=== PATIENT | female | born 1980 | race Hispanic/Latino ===

== ENCOUNTER 2019-03-13 05:11 | Emergency (ER) | payer OTHER ==
--- NOTE | 2019-03-13 06:33 | EDPHYS ---
Physician Documentation [facility] Name: Flor Smallwood Age: 38 yrs Sex: Female : 1980 Arrival Date: 03/13/2019 Time: 05:14 Bed 13 Private MD: ED Physician Karsten Shaw HPI: 03/13 06:14 This 38 yrs old Female presents to ER via Ambulatory with complaints of spider rn bite. 06:14 the patient presents with a swollen area of the right leg. Description: erythematous. rn Onset: The symptoms/episode began/occurred yesterday. Possible cause(s): unknown. Associated signs and symptoms: Pertinent positives: erythema, swelling, Pertinent negatives: erythema, swelling. Modifying factors: the symptoms are alleviated by nothing, the symptoms are aggravated by touching. Severity of symptoms: At their worst the symptoms were mild, in the emergency department the symptoms are unchanged. The patient has not experienced similar symptoms in the past. Reports noticed redness and swelling of right pre-tibial region, no fever, no trauma, reports got better with ice. . 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 - Social history:: Smoking status: Patient/guardian denies using tobacco. - Ebola Screening: : No symptoms or risks identified at this time. - Family history:: not pertinent. - Hospitalizations: : No recent hospitalization is reported. ROS: 06:14 Constitutional: Negative for fever, chills, and weight loss, Skin: + right pre-tibial rn region with swollen red area Exam: 06:14 Constitutional: This is a well developed, well nourished patient who is awake, alert, rn and in no acute distress. MS/ Extremity: Pulses equal, no cyanosis. Neurovascular intact. Full, normal range of motion. + 3cm irregular area of induration right pre-tibial region, no fluctuance. Vital Signs: 05:31 BP 146 / 97; Pulse 84; Resp 16 S; Temp 98.7(O); Pulse Ox 98% on R/A; Weight 72.57 kg bb (R); Height 4 ft. 11 in. (149.86 cm) (R); Pain 5/10; 05:31 Body Mass Index 32.32 (72.57 kg, 149.86 cm) bb MDM: 05:24 Patient medically screened. rn 06:31 Differential diagnosis: abscess, cellulitis, insect bite. Data reviewed: vital signs, rn nurses notes, radiologic studies, ultrasound, and as a result, I will discharge patient. Counseling: I had a detailed discussion with the patient and/or guardian regarding: the historical points, exam findings, and any diagnostic results supporting the discharge/admit diagnosis, the need for outpatient follow up, to return to the emergency department if symptoms worsen or persist or if there are any questions or concerns that arise at home. Special discussion: I discussed with the patient/guardian in detail that at this point there is no indication for admission to the hospital. It is understood, however, that if the symptoms persist or worsen the patient needs to return immediately for re-evaluation. ED course: Bedside ultrasound show cobblestoning of subcutaneous tissue, no drainable abscess, will place on abx and return precautions given. Told to use neosporin, antibacterial soap, and warm compresses. . Administered Medications: No medications were administered Disposition: 03/13/19 06:32 Discharged to Home. Impression: Cellulitis of right lower limb, Phlegmon of right lower limb. - Condition is Stable. - Discharge Instructions: Cellulitis, Adult. - Prescriptions for Bactrim DS 800- 160 mg Oral Tablet - take 1 tablet by ORAL route every 12 hours for 10 days; 20 tablet. - Medication Reconciliation Form, Thank You Letter, Antibiotic Education, Prescription Opioid Use form. - Work release form (03/13/19 06:41). lp1 - Family Work Release (03/13/19 06:42). lp1 - Follow up: Private Physician; When: As needed; Reason: Recheck today's complaints, Re-evaluation by your physician. - Problem is new. - Symptoms have improved. Signatures: Naina Hudson RN RN bb Karsten Shaw MD MD rn Pena, Laura, RN RN lp1 Corrections: (The following items were deleted from the chart) 06:33 06:32 03/13/2019 06:32 Discharged to Home. Impression: Cellulitis of right lower limb. rn Condition is Stable. Forms are Medication Reconciliation Form, Thank You Letter, Antibiotic Education, Prescription Opioid Use. Follow up: Private Physician; When: As needed; Reason: Recheck today's complaints, Re-evaluation by your physician. Problem is new. Symptoms have improved. rn 06:41 06:33 03/13/2019 06:32 Discharged to Home. Impression: Cellulitis of right lower limb; lp1 Phlegmon of right lower limb. Condition is Stable. Forms are Medication Reconciliation Form, Thank You Letter, Antibiotic Education, Prescription Opioid Use. Follow up: Private Physician; When: As needed; Reason: Recheck today's complaints, Re-evaluation by your physician. Problem is new. Symptoms have improved. rn
--- NOTE | 2019-03-13 06:33 | ER ---
Nurse's Notes [facility] Name: Flor Smallwood Age: 38 yrs Sex: Female : 1980 Arrival Date: 03/13/2019 Time: 05:14 Bed 13 Private MD: Diagnosis: Cellulitis of right lower limb;Phlegmon of right lower limb Presentation: 03/13 05:30 Presenting complaint: Patient states: she thinks she may have been bitten by a spider bb yesterday she has a reddened area which is swollen and painful to right lower extremity. Transition of care: patient was not received from another setting of care. Onset of symptoms was March 12, 2019. Risk Assessment: Do you want to hurt yourself or someone else? Patient reports no desire to harm self or others. Initial Sepsis Screen: Does the patient meet any 2 criteria? No. Patient's initial sepsis screen is negative. Does the patient have a suspected source of infection? No. Patient's initial sepsis screen is negative. Care prior to arrival: None. 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 - Social history:: Smoking status: Patient/guardian denies using tobacco. - Ebola Screening: : No symptoms or risks identified at this time. - Family history:: not pertinent. - Hospitalizations: : No recent hospitalization is reported. Screenin:33 Abuse screen: Denies threats or abuse. Nutritional screening: No deficits noted. bb Tuberculosis screening: No symptoms or risk factors identified. Fall Risk None identified. Assessment: 05:33 General: Appears in no apparent distress. Behavior is calm, cooperative. Pain: bb Complains of pain in right kaur Pain currently is 5 out of 10 on a pain scale. Neuro: Level of Consciousness is awake, alert, obeys commands, Oriented to person, place, time, situation. Cardiovascular: No deficits noted. Respiratory: Airway is patent Respiratory effort is even, unlabored. GI: No signs and/or symptoms were reported involving the gastrointestinal system. Derm: Abscess located on right kaur. Musculoskeletal: Circulation, motion, and sensation intact. Vital Signs: 05:31 BP 146 / 97; Pulse 84; Resp 16 S; Temp 98.7(O); Pulse Ox 98% on R/A; Weight 72.57 kg bb (R); Height 4 ft. 11 in. (149.86 cm) (R); Pain 5/10; 05:31 Body Mass Index 32.32 (72.57 kg, 149.86 cm) ED Course: 05:14 Patient arrived in ED. am2 05:24 Karsten Shaw MD is Attending Physician. rn 05:31 Triage completed. bb 05:31 Arm band placed on Patient placed in an exam room, on a stretcher, on pulse oximetry. bb Family accompanied patient. 05:33 Patient has correct armband on for positive identification. Bed in low position. Call bb light in reach. Adult w/ patient. Pulse ox on. NIBP on. 05:40 Trish Rico RN is Primary Nurse. lp1 06:40 No provider procedures requiring assistance completed. Patient did not have IV access lp1 during this emergency room visit. Administered Medications: No medications were administered Outcome: 06:32 Discharge ordered by . rn 06:40 Discharged to home ambulatory, with significant other. lp1 06:40 Condition: good 06:40 Discharge instructions given to patient, Instructed on discharge instructions, follow up and referral plans. medication usage, Demonstrated understanding of instructions, follow-up care, medications, Prescriptions given X 1. 06:41 Patient left the ED. lp1 Signatures: Naina Hudson RN RN Karsten Shaw MD MD rn Pena, Laura, RN RN lp1 Sarah Grace amIlya
[2019-03-13 07:10] VITALS: BP 146/97; TEMP 98.7; O2SAT 98
== END 2019-03-13 06:41 | disposition home or self-care (01) ==
LOC: ER 05:11
DX: L03.115 Cellulitis of right lower limb (principal); L02.415 Cutaneous abscess of right lower limb; W57.XXXA Bitten or stung by nonvenomous insect and other nonvenomous arthropods, initial encounter; Z88.6 Allergy status to analgesic agent
CPT/HCPCS: 99283

== ENCOUNTER 2021-10-22 18:38 | Emergency (ER) | payer OTHER ==
--- OUTSIDE RECORDS SUMMARY | 2021-10-22 18:40 | XMS REPORT | Continuity of Care Document ---
:1980 Author Organization [facility] t Address [address] [place] [address] Care Team Providers Name Role Phone PCP, DOES NOT HAVE A Primary Care Physician Unavailable Only, Db Test Attending Clinician Unavailable Martha MAILING MANAGER Attending Clinician MARTHA Attending Clinician Unavailable GHISLAINE Attending Clinician Unavailable Lab, Fam Pob I Attending Clinician Unavailable Gaby Burdick MD Attending Clinician Gaby BURDICK Attending Clinician Unavailable Aneedgard MAILING MANAGER Attending Clinician ANENE Attending Clinician Unavailable Doctor Unassigned, Name Attending Clinician Unavailable Payers Payer Name Policy Type Policy Number Effective Date Expiration Date S ource Problems This patient has no known problems. Allergies, Adverse Reactions, Alerts Allergy Allergy Status Severity Reaction(s) Onset Inactive Treating Comm ents Source Name Type Date Date Clinician NO KNOWN Drug Active [facility] ALLERGIE Class ity of [facility] Social History Social Habit Start Date Stop Date Quantity Comments Source Exposure to Not sure [facility] SARS-CoV-2 (event) Medica l Branch Sex Assigned At [birth year] [facility] 00:00:00 00:00:00 [facility] Branch Smoking Status Start Date Stop Date Source Unknown if ever smoked [facility] Medications This patient has no known medications. Procedures This patient has no known procedures. Encounters Start End Encounter Admission Attending Care Care Encounter Source Date/Time Date/Time Type Type Clinicians Facility Department ID 2021-10-14 2021-10-14 Laboratory Only, Ang Db Test [facility] 1.2.8 [id number] Univers 12:30:00 12:45:00 Only Marleni Echevarria [facility] [id number] ity of [place] [id number] Donnie as DAJUAN?BLEA [phone] Wi dical KNEY [address] [facility] 2021-10-14 2021-10-14 Outpatient R MARTHA [facility] [id number] Univers 12:30:00 12:33:41 MARLENI [facility] 2021-10-14 2021-10-14 Outpatient R [facility] [id number] Univers 12:30:00 12:30:00 [id number] [facility] 2020-11-14 2020-11-14 Outpatient ALI, HIBA [facility] [id number] [place] 00:00:00 00:00:[address] 2020-10-31 2020-10-31 Laboratory Lab, [facility] 1.2. [id number] Univers 15:11:03 15:31:03 Only Neville Burdick [facility] [id number] ity [facility] [id number] Donnie as Professio [phone] Wi dicsebastián [address] Office [address] 2020-10-31 2020-10-31 Outpatient R [facility] [id number] Univers 15:20:00 15:20:00 [id number] [facility] 2020-10-31 2020-10-31 Outpatient R EMMANUEL [facility] [id number] Univers 15:20:00 15:20:00 NEVILLE [facility] 2020-10-31 2020-10-31 Outpatient ALI, HIBA [facility] [id number] [place] 00:00:00 00:00:[address] 2020-10-31 2020-10-31 Outpatient ALI, HIBA [facility] [id number] [place] 00:00:00 00:00:[address] 2020-10-31 2020-10-31 Outpatient ALI, HIBA [facility] [id number] [place] 00:00:00 00:00:[address] 2020-04-23 2020-04-23 Laboratory Lab, Adc Fam Pob I [email or web address] 1.2. [id number] [id number] Univers 13:32:56 13:52:56 Only Elen Mullen [id number] ity of [place] [id number] Donnie as Professio [phone] [facility] [address] 2020-04-23 2020-04-23 Outpatient R CARMELLA [facility] [id number] Univers 13:40:00 13:40:00 ELEN chanely of [facility] 2020-04-23 2020-04-23 Letter Doctor ARTURO [id number] Univers 00:00:00 00:00:00 (Out) Unassigned, DIDIER [id number] ity of [place] [facility] [id number] Donnie as [phone] [place] [address] Branch Results This patient has no known results.
[2021-10-22 20:42] LABS: SARS-COV-2 RT PCR POSITIVE (NEGATIVE)
[2021-10-22] MEDS ORDERED: NA CHLORIDE 0.9% 500 ML ONE (21:39)
[2021-10-22] MEDS ORDERED: NA CHLORIDE 0.9% 1,000 ML ONE (21:39)
[2021-10-22] MEDS ORDERED: ASPIRIN 81 MG CHEWABLE TABLET ONE (21:39)
[2021-10-22 23:26] LABS: Absolute Lymphocytes (CBC) 2.2 K/uL (0.7-4.9)
[2021-10-22 23:27] LABS: Protime INR 1.01
[2021-10-22 23:38] LABS: Hematocrit 41.6 % (36.0-45.0); Lymphocytes % 27.3 % (15.3-44.8); RBC Red Blood Cell Count 4.71 M/uL (3.86-4.86)
[2021-10-22 23:43] LABS: ALT/SGPT 64 U/L (12-78); AST/SGOT 30 U/L (15-37); Albumin 3.5 g/dL (3.4-5.0); Alkaline Phosphatase 96 U/L (45-117); BUN Blood Urea Nitrogen 6 mg/dL (7-18); Bicarbonate 24 mmol/L (21-32); Bilirubin Direct 0.1 mg/dL (0-0.2); Bilirubin Total 0.4 mg/dL (0.2-1.0); C-Reactive Protein 4.04 mg/L (<3.00); Ferritin 47.3 ng/mL (8-388); Glucose Level 87 mg/dL (74-106); Magnesium 2.1 mg/dL (1.8-2.4); NT PRO-BNP 21 pg/mL (<125); Potassium 3.8 mmol/L (3.5-5.1); Protein, Total 8.1 g/dL (6.4-8.2); Sodium Level 139 mmol/L (136-145); Troponin (Emerg Dept Use Only) < 0.02 ng/mL (0.0-0.045)
[2021-10-23 00:37] LABS: Urine Blood Trace-lysed (Negative); Urine Glucose Negative (Negative); Urine Protein Negative (Negative); Urine Specific Gravity 1.025 (1.005-1.030)
--- NOTE | 2021-10-23 00:54 | ER ---
Nurse's Notes [facility] Name: Flor Smallwood Age: 41 yrs Sex: Female : 1980 Arrival Date: 10/22/2021 Time: 18:38 Bed 12 Private MD: Pio Wakefield T Diagnosis: Chest pain on breathing;Coronavirus infection, unspecified Presentation: 10/22 19:10 Chief complaint: Patient states: pt states she was tested last Saturday for covid with a lg3 positive result in [place]. Symptoms increasing since last week. Coughing, body aches, congestion, fever. new chest pain for 2 days in center of chest that radiates to the back especially after coughing. Taking Mucinex, Advil, DayQuil and NyQuil at home. Coronavirus screen: Client denies travel out of the [place] in the last 14 days. chills, congestion, cough unrelated to allergies, fatigue, fever, headache, muscle pain, runny nose, shortness of breath, Client presents with at least one sign or symptom that may indicate coronavirus-19. Standard/surgical mask placed on the client. Client reports previous positive COVID test result. Date of collection: October 15, 2021. Ebola Screen: No symptoms or risks identified at this time. Initial Sepsis Screen: Does the patient meet any 2 criteria? No. Patient's initial sepsis screen is negative. Does the patient have a suspected source of infection? No. Patient's initial sepsis screen is negative. Risk Assessment: Do you want to hurt yourself or someone else? Patient reports no desire to harm self or others. Onset of symptoms was October 15, 2021. 19:10 Method Of Arrival: Ambulatory lg3 19:10 Acuity: VAN 3 lg3 Triage Assessment: 19:16 General: Appears in no apparent distress. comfortable, Behavior is calm, cooperative. lg3 Pain: Complains of pain in chest Pain radiates to back. Neuro: Level of Consciousness is awake, alert, obeys commands, Oriented to person, place, time, situation. Cardiovascular: Capillary refill < 3 seconds. Respiratory: Reports shortness of breath cough that is pain with cough Onset: The symptoms/episode began/occurred gradually, the patient has mild shortness of breath. GI: No signs and/or symptoms were reported involving the gastrointestinal system. : No signs and/or symptoms were reported regarding the genitourinary system. Derm: No signs and/or symptoms reported regarding the dermatologic system. Musculoskeletal: Circulation, motion, and sensation intact. Range of motion: intact in all extremities. 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 - Social history:: Smoking status: Patient denies any tobacco usage or history of. - Family history:: not pertinent. Screenin:44 Abuse screen: Denies threats or abuse. Nutritional screening: No deficits noted. tw5 Tuberculosis screening: No symptoms or risk factors identified. Fall Risk None identified. Assessment: 19:44 Reassessment: No changes from previously documented assessment. Patient and/or family tw5 updated on plan of care and expected duration. Pain level reassessed. Patient is alert, oriented x 3, equal unlabored respirations, skin warm/dry/pink. General: Appears in no apparent distress. comfortable, Behavior is calm, cooperative. Pain: Complains of pain in chest Pain radiates to back Pain currently is 6 out of 10 on a pain scale. Neuro: Level of Consciousness is awake, alert, obeys commands, Oriented to person, place, time, situation, Moves all extremities. Gait is steady, Speech is normal. Cardiovascular: Capillary refill < 3 seconds JVD is absent Patient's skin is warm and dry. Rhythm is sinus rhythm. Respiratory: Airway is patent Trachea midline Respiratory effort is even, unlabored, Respiratory pattern is regular, symmetrical, Breath sounds are clear bilaterally. 22:36 Reassessment: No changes from previously documented assessment. Patient and/or family tw5 updated on plan of care and expected duration. Pain level reassessed. Patient is alert, oriented x 3, equal unlabored respirations, skin warm/dry/pink. Pain: Complains of pain in chest Pain currently is 6 out of 10 on a pain scale. 22:36 General: Appears in no apparent distress. comfortable, Behavior is calm, cooperative, tw5 appropriate for age. 23:50 Reassessment: Patient and/or family updated on plan of care and expected duration. Pain tw5 level reassessed. Patient is alert, oriented x 3, equal unlabored respirations, skin warm/dry/pink. Patient states feeling better. 23:50 General: "How long are we going to be here, I would really like to go home and get tw5 something to eat". Vital Signs: 19:10 BP 135 / 90; Pulse 80; Resp 18 S; Temp 98.4(TE); Pulse Ox 100% on R/A; Weight 77.11 kg lg3 (R); Height 4 ft. 11 in. (149.86 cm); Pain 7/10; 22:36 Pulse 68; Resp 18; Pulse Ox 100% on R/A; tw5 23:50 Pulse 72; Resp 18; Pulse Ox 100% on R/A; tw5 19:10 Body Mass Index 34.34 (77.11 kg, 149.86 cm) lg3 ED Course: 18:38 Patient arrived in ED. am2 18:38 Pio Wakefield MD is Private Physician. am2 19:16 Triage completed. lg3 19:16 Arm band placed on. lg3 19:25 Tex Feng MD is Attending Physician. [facility] 19:41 Venus Shaw is Primary Nurse. tw5 19:44 Patient has correct armband on for positive identification. Placed in gown. Bed in low tw5 position. Call light in reach. Side rails up X 1. 19:44 No provider procedures requiring assistance completed. tw5 20:19 COVID-19/FLU A+B (Document "Date of Onset" if Symptomatic) Sent. tw5 20:42 Notified ED physician of a critical lab result(s). covid +. tw5 20:42 Throat Culture Sent. tw5 22:04 XRAY Chest (1 view) In Process Unspecified. EDMS 22:36 Ferritin Sent. tw5 22:36 C-Reactive Protein Sent. tw5 22:36 Troponin (emerg Dept Use Only) Sent. tw5 22:36 PT-INR Sent. tw5 22:36 NT PRO-BNP Sent. tw5 22:36 Basic Metabolic Panel Sent. tw5 22:36 CBC with Diff Sent. tw5 22:36 LFT's Sent. tw5 22:36 Magnesium Sent. 10/23 00:39 CT Chest For PE Angio In Process Unspecified. EDMS 00:53 Pio Wakefield MD is Referral Physician. [facility] 00:54 Merrick Castellanos MD is Referral Physician. [facility] Administered Medications: 10/22 22:31 Drug: Aspirin Chewable Tablet 324 mg Route: PO; lg3 22:31 Follow up: Response: No adverse reaction lg3 23:49 Follow up: Response: No adverse reaction 22:36 Drug: NS 0.9% 500 ml Route: IV; Rate: bolus; Site: right forearm; 23:49 Follow up: IV Status: Completed infusion; IV Intake: 500ml 22:36 Drug: NS 0.9% 1000 ml Route: IV; Rate: 125 ml/hr; Site: right forearm; 10/23 01:12 Follow up: Response: No adverse reaction; IV Status: Order to discontinue infusion; IV Intake: 500ml Intake: 10/22 23:49 IV: 500ml; Total: 500ml. 10/23 01:12 IV: 500ml; Total: 1000ml. Outcome: 00:54 Discharge ordered by . [facility] 01:15 Patient left the ED. Signatures: Dispatcher [employer] EDTex Mosley MD MD cha Moreno, Amanda am2 Gibson, Lacie, RN RN [email or web address] Venus Shaw tw
--- NOTE | 2021-10-23 00:54 | EDPHYS ---
Physician Documentation [facility] Name: Flor Smallwood Age: 41 yrs Sex: Female : 1980 Arrival Date: 10/22/2021 Time: 18:38 Bed 12 Private MD: Pio Wakefield T ED Physician Tex Feng HPI: 10/22 20:55 This 41 yrs old Female presents to ER via Ambulatory with complaints of antonio Breathing Difficulty. 20:55 The patient has shortness of breath at rest, with light activity. Onset: The antonio symptoms/episode began/occurred 3 day(s) ago. Duration: The symptoms are continuous, and are steadily getting worse. The patient's shortness of breath is aggravated by coughing, is alleviated by rest. Associated signs and symptoms: Pertinent positives: non-productive cough. Severity of symptoms: At their worst the symptoms were mild in the emergency department the symptoms are unchanged. The patient has not experienced similar symptoms in the past. 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 - Social history:: Smoking status: Patient denies any tobacco usage or history of. - Family history:: not pertinent. ROS: 21:00 Constitutional: Negative for fever, chills, and weight loss, Eyes: Negative for injury, antonio pain, redness, and discharge, ENT: Negative for injury, pain, and discharge, Neck: Negative for injury, pain, and swelling, Respiratory: Negative for shortness of breath, cough, wheezing, and pleuritic chest pain, Abdomen/GI: Negative for abdominal pain, nausea, vomiting, diarrhea, and constipation, Back: Negative for injury and pain, : Negative for injury, bleeding, discharge, and swelling, MS/Extremity: Negative for injury and deformity, Skin: Negative for injury, rash, and discoloration, Neuro: Negative for headache, weakness, numbness, tingling, and seizure, Psych: Negative for depression, anxiety, suicide ideation, homicidal ideation, and hallucinations, Allergy/Immunology: Negative for hives, rash, and allergies, Endocrine: Negative for neck swelling, polydipsia, polyuria, polyphagia, and marked weight changes, Hematologic/Lymphatic: Negative for swollen nodes, abnormal bleeding, and unusual bruising. 21:00 Cardiovascular: Positive for chest pain, with cough, with movement, of the chest. Exam: 21:00 Constitutional: This is a well developed, well nourished patient who is awake, alert, antonio and in no acute distress. Head/Face: Normocephalic, atraumatic. Eyes: Pupils equal round and reactive to light, extra-ocular motions intact. Lids and lashes normal. Conjunctiva and sclera are non-icteric and not injected. Cornea within normal limits. Periorbital areas with no swelling, redness, or edema. ENT: Nares patent. No nasal discharge, no septal abnormalities noted. Tympanic membranes are normal and external auditory canals are clear. Oropharynx with no redness, swelling, or masses, exudates, or evidence of obstruction, uvula midline. Mucous membranes moist. Neck: Trachea midline, no thyromegaly or masses palpated, and no cervical lymphadenopathy. Supple, full range of motion without nuchal rigidity, or vertebral point tenderness. No Meningismus. Chest/axilla: Normal chest wall appearance and motion. Nontender with no deformity. No lesions are appreciated. Respiratory: Lungs have equal breath sounds bilaterally, clear to auscultation and percussion. No rales, rhonchi or wheezes noted. No increased work of breathing, no retractions or nasal flaring. Abdomen/GI: Soft, non-tender, with normal bowel sounds. No distension or tympany. No guarding or rebound. No evidence of tenderness throughout. Back: No spinal tenderness. No costovertebral tenderness. Full range of motion. Skin: Warm, dry with normal turgor. Normal color with no rashes, no lesions, and no evidence of cellulitis. MS/ Extremity: Pulses equal, no cyanosis. Neurovascular intact. Full, normal range of motion. Neuro: Awake and alert, GCS 15, oriented to person, place, time, and situation. Cranial nerves II-XII grossly intact. Motor strength 5/5 in all extremities. Sensory grossly intact. Cerebellar exam normal. Normal gait. Psych: Awake, alert, with orientation to person, place and time. Behavior, mood, and affect are within normal limits. 21:00 Cardiovascular: Rate: normal, Rhythm: regular, Pulses: Pulses are 4+ in bilateral radial, brachial, femoral, popliteal, posterior tibial and and dorsalis pedis arteries.. Heart sounds: murmur, not appreciated, rub, not appreciated, gallop, not appreciated, Edema: is not appreciated, JVD: is not appreciated. 23:14 ECG was reviewed by the Attending Physician. antonio Vital Signs: 19:10 BP 135 / 90; Pulse 80; Resp 18 S; Temp 98.4(TE); Pulse Ox 100% on R/A; Weight 77.11 kg lg3 (R); Height 4 ft. 11 in. (149.86 cm); Pain 7/10; 22:36 Pulse 68; Resp 18; Pulse Ox 100% on R/A; tw5 23:50 Pulse 72; Resp 18; Pulse Ox 100% on R/A; tw5 19:10 Body Mass Index 34.34 (77.11 kg, 149.86 cm) lg3 MDM: 19:25 Patient medically screened. antonio 21:02 Differential diagnosis: Anxiety Reaction Bronchitis CHF exacerbation, bronchitis, URI, antonio abnormal EKG, anxiety, coronary artery disease chest wall pain, congestive heart failure Cholelithiasis hiatal hernia, pneumothorax, pulmonary embolus, stable angina, pneumonia, Pneumothorax pulmonary edema, Pulmonary Embolism Unstable Angina. Antibiotic administration: Not indicated. HEART Score: History: Slightly Suspicious (0), ECG: Normal (0), Age: < or = 45 years (0), Risk Factors: No Risk Factors Known (0), Troponin: < or = 1 x Normal Limit (0). The patient's Wells Deep Vein Thrombosis Score was calculated as follows: Total Score: 0. This patient was found to be at low risk for a deep vein thrombosis by using the Well's assessment criteria No Risks (0 Pts) Total Score: 0-2 Pts- Low Risk. The patient's pulmonary embolism risk score was calculated as follows: Total Score: 0-2 points. This patient was found to be at low risk for a pulmonary embolism by using the Well's assessment criteria Total Score: 0-2 points. This patient was found to be at low risk for a pulmonary embolism by using the Well's assessment criteria. JERMAINE Risk Score: TOTAL SCORE = 0. Immunization status:. Data reviewed: vital signs, nurses notes, lab test result(s), EKG, radiologic studies, plain films. Data interpreted: manager monitoring: rate is 80 beats/min, rhythm is regular, Pulse oximetry: on room air is 100 %. Test interpretation: by ED physician or midlevel provider: ECG, plain radiologic studies. 10/22 19:42 Order name: COVID-19/FLU A+B (Document "Date of Onset" if Symptomatic); Complete Time: tw5 22:18 10/22 19:42 Order name: Strep; Complete Time: 22:18 tw5 10/22 20:08 Order name: Throat Culture EDMS 10/22 20:55 Order name: Basic Metabolic Panel; Complete Time: 00:03 [facility] 10/22 20:55 Order name: CBC with Diff; Complete Time: 00:03 [facility] 10/22 20:55 Order name: LFT's; Complete Time: 00:03 [facility] 10/22 20:55 Order name: Magnesium; Complete Time: 00:03 [facility] 10/22 20:55 Order name: NT PRO-BNP; Complete Time: 00:03 [facility] 10/22 20:55 Order name: PT-INR; Complete Time: 23:38 [facility] 10/22 20:55 Order name: Troponin (emerg Dept Use Only); Complete Time: 00:03 [facility] 10/22 19:22 Order name: EKG - Nurse/Tech; Complete Time: 20:18 lg3 10/22 20:55 Order name: XRAY Chest (1 view) [facility] 10/22 20:55 Order name: EKG; Complete Time: 20:56 [facility] 10/22 20:55 Order name: Cardiac monitoring; Complete Time: 22:36 [facility] 10/22 20:55 Order name: IV Saline Lock; Complete Time: 22:36 [facility] 10/22 20:55 Order name: Labs collected and sent; Complete Time: 22:36 [facility] 10/22 20:55 Order name: O2 Per Protocol; Complete Time: 22:36 [facility] 10/22 20:55 Order name: CT Chest For PE Angio [facility] 10/22 21:45 Order name: C-Reactive Protein; Complete Time: 00:03 EDMS 10/22 21:45 Order name: Ferritin; Complete Time: 00:03 EDMS 10/23 00:37 Order name: Urine Dipstick-Ancillary; Complete Time: 00:53 EDMS 10/23 00:45 Order name: Urine --Ancillary (enter results) cs9 10/22 20:55 Order name: O2 Sat Monitoring; Complete Time: 23:45 antonio 10/22 23:50 Order name: Urine Dipstick-Ancillary (obtain specimen); Complete Time: 00:31 tw5 EC:14 Rate is 71 beats/min. Rhythm is regular. QRS [place] is Normal. [place] interval is normal. QRS antonio interval is normal. QT interval is normal. No Q waves. T waves are Normal. No ST changes noted. Clinical impression: Normal ECG and No evidence of ischemia. Interpreted by me. Reviewed by me. Administered Medications: 22:31 Drug: Aspirin Chewable Tablet 324 mg Route: PO; lg3 22:31 Follow up: Response: No adverse reaction lg3 23:49 Follow up: Response: No adverse reaction tw5 22:36 Drug: NS 0.9% 500 ml Route: IV; Rate: bolus; Site: right forearm; tw5 23:49 Follow up: IV Status: Completed infusion; IV Intake: 500ml tw5 22:36 Drug: NS 0.9% 1000 ml Route: IV; Rate: 125 ml/hr; Site: right forearm; tw5 10/23 01:12 Follow up: Response: No adverse reaction; IV Status: Order to discontinue infusion; IV tw5 Intake: 500ml Disposition Summary: 10/23/21 00:54 Discharge Ordered Location: Home antonio Problem: new antonio Symptoms: have improved antonio Condition: Stable antonio Diagnosis - Chest pain on breathing antonio - Coronavirus infection, unspecified antonio Followup: antonio - With: - When: 2 - 3 days - Reason: Recheck today's complaints, Continuance of care, Re-evaluation by your physician Followup: antonio - With: Merrick Castellanos MD - When: 2 - 3 days - Reason: Recheck today's complaints, Re-evaluation by your physician Discharge Instructions: - Discharge Summary Sheet antonio - Nonspecific Chest Pain, Adult antonio - Chest Wall Pain antonio - Upper Respiratory Infection, Adult antonio - Costochondritis, [id number] antonio - Aspirin and Your Heart antonio - COVID-19 antonio - COVID-19 Frequently Asked Questions antonio - 10 Things You Can Do to Manage Your COVID-19 Symptoms at Home - CDC antonio - COVID-19: Quarantine vs. Isolation - [facility] Forms: - Medication Reconciliation Form [facility] - Thank You Letter [facility] - Antibiotic Education [facility] - Prescription Opioid Use [facility] - Work release form tw5 Prescriptions: - Toprol XL 25 mg Oral Tablet - take 1 tablet by ORAL route once daily; 20 tablet; Refills: 0, Product [facility] Selection Permitted - Pepcid 20 mg Oral Tablet - take 1 tablet by ORAL route every 12 hours for 30 days; 60 tablet; Refills: 0, [facility] Product Selection Permitted - Singulair 10 mg Oral Tablet - take 1 tablet by ORAL route At bedtime; 30 tablet; Refills: 0, Product [facility] Selection Permitted - Prednisone 20 mg Oral Tablet - take 2 tablets by ORAL route once daily for 5 days; 10 tablet; Refills: 0, [facility] Product Selection Permitted Signatures: Dispatcher [employer] EDTex Mosley MD MD cha Gibson, Lacie, RN RN lg3 Venus Shaw tw5 Corrections: (The following items were deleted from the chart) 10/22 21:44 21:39 C-REACTIVE PROTEIN+C.LAB.BRZ ordered. EDMS EDMS 21:44 21:39 FERRITIN+C.LAB.BRZ ordered. EDMS EDMS
[2021-10-23 00:55] LABS: Urine Specific Gravity/Preg 1.025 (1.005-1.030)
[2021-10-23 01:26] VITALS: BP 135/90; TEMP 98.4; O2SAT 100
--- NOTE | 2021-10-23 08:32 | RAD REPORT ---
EXAM DESCRIPTION: Mckenzie Single View10/22/2021 10:04 pm CLINICAL HISTORY: Chest pain COMPARISON: none FINDINGS: The lungs appear clear of acute infiltrate. The heart is mildly enlarged IMPRESSION: No acute abnormalities displayed
--- NOTE | 2021-10-23 11:32 | RAD REPORT ---
EXAM DESCRIPTION: CT - Chest For Pe Angio - 10/23/2021 5:46 am CLINICAL HISTORY: 41 years, Female, CHEST PAIN COMPARISON: None. TECHNIQUE: Multiple transaxial tomograms of the chest were obtained from the lung apices through the lung bases utilizing 2 mm slice thickness at 2 mm interval reconstruction after the administration o f large bolus of IV contrast for complete opacification of the pulmonary arteries. Subsequent 3-D maximum intensity projection images were generated in the coronal and sagittal plane f or review. This exam was performed according to our departmental dose-optimization protocol, which includes auto mated exposure control, adjustment of the mA and/or kV according to patient size and/or use of iterat carlton reconstruction technique. FINDINGS: Several the images are compromised by breathing motion artifact limiting diagnostic value The lungs parenchyma demonstrate minimal diffuse increase haziness throughout suggesting the possibil ity of air trapping and/or atelectasis. No significant masses and/or consolidation. Mild elevation of the right hemidiaphragm. The trachea mainstem bronchus demonstrate to be normal. There is no signi ficant pericardial or pleural effusions. The thoracic aorta demonstrate to be unremarkable. No evidence for aneurysm. The heart is normal in s ize. No evidence for right ventricular strain. There are no coronary artery calcifications. There is no significant mediastinal and/or hilar lymphadenopathy. The axillary regions demonstrate to be clear. Pulmonary arteries demonstrate to be normal, no intraluminal defect are seen that would suggest pulmo nary embolus. The bone windows demonstrate no significant skeletal lesions. The visualized portions of the upper abdomen demonstrate increased size of the liver with decreased a ttenuation. IMPRESSION: Several the images are compromised by breathing motion artifact limiting diagnostic valu e. No evidence for pulmonary embolus and/or thoracic aortic dissection. Minimal diffuse increase haziness throughout the lungs suggesting the possibility of air trapping and /or atelectasis. Increased size of the liver with decreased attenuation suggesting the possibility of hepatic steatosi s. 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 The interpreting r adiologist is fully responsible for the content of the report.
== END 2021-10-23 01:15 | disposition home or self-care (01) ==
LOC: ER 18:38
DX: U07.1 COVID-19 (principal); Z88.6 Allergy status to analgesic agent
CPT/HCPCS: 96361; 93005; 87070; 85025; 80048; 36415; 83735; 81025; 85610; 80076; 87081; 81003; 84484; 82728; 83880; 0240U; 86140; 71275; 71045; 96360; 99284; Q9967; J7040; J7030

== ENCOUNTER 2023-04-11 15:10 | Emergency (ER) | payer OTHER ==
--- OUTSIDE RECORDS SUMMARY | 2023-04-11 15:18 | XMS REPORT | Continuity of Care Document ---
:1980 Author Organization [facility] t Address [address] [place] [address] Care Team Providers Name Role Phone PCP, PATIENT DOES NOT HAVE A Primary Care Physician Unavaila ble Only, Ang Db Test Attending Clinician Unavailable Unknown, Attending Attending Clinician Unavailable OLIMPIA MAR Attending Clinician Unavailable Mitch Godinez Attending Clinician MITCH DOUGLAS Attending Clinician Unavailable Doctor Unassigned, [place] Attending Clinician Unavailable Marleni Burgos Attending Clinician MARLENI THOMAS Attending Clinician Unavailable BETTY SCANLON Attending Clinician Unavailable Lab, Adc Fam Pob I Attending Clinician Unavailable Neville Burdick MD Attending Clinician NEVILLE BURDICK Attending Clinician Unavailable Elen Womack Attending Clinician ELEN WEIR Attending Clinician Unavailable Payers Payer Name Policy Type Policy Number Effective Date Expiration Date S ource Problems This patient has no known problems. Allergies, Adverse Reactions, Alerts Allergy Allergy Status Severity Reaction(s) Onset Inactive Treating Comm ents Source Name Type Date Date Clinician Acetamin Propensi Active Rash Method i ophen ty to 10-31 adverse 00:00: Hospita reaction 00 l s to drug NO KNOWN Drug Active [facility]ERGIE Class ity of S [facility] Family History Family Member Diagnosis Comments Start Date Stop Date Source Natural father Arthritis [facility] Natural father Diabetes [facility] Natural mother Diabetes [facility] Social History Social Habit Start Date Stop Date Quantity Comments Source Gender identity [facility] History of tobacco Current smoker [facility] Exposure to 2022-10-09 2022-10-19 Not sure [facility]-CoV-2 (event) 00:00:00 13:57:00 [facility] Alcohol intake 2020-10-31 2020-10-31 Current drinker [facility] 00:00:00 00:00:00 of alcohol Hospital (finding) History of Social 2020-10-31 2020-10-[address] function 00:00:00 00:00:00 Hospital Alcohol Comment 2020-10-31 2020-10-31 Socially Religious 00:00:00 00:00:00 Hospital Tobacco use and 2020-10-31 2020-10-31 Smokeless Religious exposure 00:00:00 00:00:00 tobacco non-user Hospital Sex Assigned At [birth year] Religious 00:00:00 00:00:00 Hospital Smoking Status Start Date Stop Date Source Tobacco smoking [facility] [place] consumption unknown [facility] Ex-smoker 2020-10-31 00:00:00 2020-10-31 [facility] 00:[facility]:00 Medications Ordered Filled Start Stop Current Ordering Indication Dosage Frequency Signature Comments Components Source Medication Medication Date Date Medication? Clinician (SIG) Name Name omeprazole Yes 40mg QD Take 1 [facility] (PriLOSEC) 2-[address] 40 MG 00:00: (40 mg Hospita capsule 00 total) by l mouth daily. ibuprofen Yes Q6H Take by [facility] (MOTRIN) 1-[address] 100 mg/5 mL 09:36: every 6 Hos flash suspension 54 (six) l hours as needed for mild pain. predniSONE 2019-10 Yes 10mg Q.5D Take 10 mg M ethodi (DELTASONE) 2-[address] 10 mg 00:00: (two) Hospita tablet 00 times a l day. Procedures Procedure Date / Time Performed Performing Clinician Estephania e ASSIGNMENT OF BENEFITS 2022-04-22 17:30:10 Doctor Unassigned, No [facility] Plan of Care Planned Activity Planned Date Details Comments Source Future Scheduled 2023-03-31 COVID-[address] [facility] Test 17:10:18 (#1) [code = COVID-19 VACCINE (#1)] Future Scheduled 2023-03-31 [facility]atitis C [facility] Test 17:10:18 screening (procedure) [code = 150971985] Future Scheduled 2023-03-31 Screening for [facility] Test 17:10:18 malignant neoplasm of cervix (procedure) [code = 272662798] Future Scheduled 2023-03-31 BREAST CANCER [facility] Test 17:10:18 SCREENING [code = BREAST CANCER SCREENING] Future Scheduled 2023-03-31 INFLUENZA VACCINE [facility] Test 17:10:18 [code = INFLUENZA VACCINE] Encounters Start End Encounter Admission Attending Care Care Encounter Source Date/Time Date/Time Type Type Clinicians Facility Department ID 2022-10-19 2022-10-19 Laboratory Only, Ang Db Test [facility] 1.2.8 40.114 [id number] Univers 14:00:00 14:15:00 Only Unknown, [facility] [id number] ity [facility] [id number] Donnie as DAJUAN?BLEA [id number] [address] MEDICAL OFFICE BUILDING 2022-10-19 2022-10-19 Outpatient R ISABELA [facility] [id number] Univers 14:00[facility] 2022-04-22 Laboratory Only, Ang Db Test [facility] 1.2.8 40.114 [id number] Univers 12:45:00 13:00:[address] [facility] [id number] ity [facility] [id number] Donnie as DAJUAN?BLEA [id number] [address] MEDICAL OFFICE BUILDING 2022-04-22 2022-04-22 Outpatient R JUDY [facility] [id number] Univers 12:45:00 12:37:05 [facility] 2022-04-22 2022-04-22 Orders Doctor MORRIS 1.2.840.114 [id number] Univers 00:00:00 00:00:00 Only Unassigned, DIDIER [id number] [facility] [id number] Donnie as [id number] [address] 2021-10-14 2021-10-14 Laboratory Only, Ang Db Test [facility] 1.2.8 40.114 [id number] Univers 12:30:00 12:45:00 Only Marleni Thomas [facility] [id number] ity of [place] [id number] Donnie as DAJUAN?BLEA [id number] [place] dical [facility] [address] MEDICAL OFFICE BUILDING 2021-10-14 2021-10-14 Outpatient R MARTHA [facility] [id number] Univers 12:30:00 12:33:41 [facility] 2020-11-14 2020-11-14 [facility] [id number] [facility] 00:00:00 00:00:00 197 Method i 2020-10-31 2020-10-31 Laboratory Lab, Adc Fam Pob I [facility] 1.2. 840.114 [id number] Univers 15:11:03 15:31:03 Only Neville Burdick [facility] [id number] ity of [place] [id number] Donnie as Professio [phone] [address] Office [address] 2020-10-31 2020-10-31 Outpatient R EMMANUEL [facility] [id number] Univers 15:20:00 15:20:00 NEVILLE [facility] 2020-10-31 2020-10-31 Out[facility] [id number] [facility] 00:00:00 00:00:00 712 Method i 2020-10-31 2020-10-31 Outpatient AL[facility], [facility] [id number] [facility] 00:00:00 00:00:00 933 Method i 2020-10-31 2020-10-31 Outpatient ALI, HIBA [facility] [id number] [facility] 00:00:00 00:00:00 129 Method i 2020-04-23 2020-04-23 Laboratory Lab, Adc Fam Pob I [facility] 1.2. 840.114 [id number] Univers 13:32:56 13:52:56 Only Elen Weir [id number] ity of [place] [id number] Donnie as Jessica [id number] [facility] [address] 2020-04-23 2020-04-23 Outpatient R CARMELLA [facility] [id number] Univers 13:40:00 13:40:00 ELEN chanely of [facility] 2020-04-23 2020-04-23 Letter Doctor ARTURO 1.2.840.114 [id number] Univers 00:00:00 00:00:00 (Out) Unassigned, DIDIER [id number] ity of [place] [facility] [id number] Donnie as [phone] [place] [address] Branch Results This patient has no known results.
[2023-04-11] MEDS ORDERED: NA CHLORIDE 0.9% 1,000 ML ONE (15:50)
[2023-04-11] MEDS ORDERED: FAMOTIDINE 20 MG/2 ML VIAL IV ONE (15:50)
[2023-04-11] MEDS ORDERED: ONDANSETRON 4 MG/2 ML VIAL ONE (15:50)
[2023-04-11 16:06] LABS: Absolute Lymphocytes (CBC) 0.6 K/uL (0.7-4.9); Hematocrit 44.9 % (36.0-45.0); Lymphocytes % 5.4 % (15.3-44.8); MCV 88.7 fL (80-100); RBC Red Blood Cell Count 5.06 M/uL (3.86-4.86)
[2023-04-11 16:14] LABS: Specific Gravity 1.025 (1.005-1.030)
[2023-04-11 16:15] LABS: Specific Gravity 1.025 (1.005-1.030); Urine Bacteria <20 /HPF (<20); Urine Bilirubin NEGATIVE (Negative); Urine Blood 2+ (Negative); Urine Clarity Turbid (Clear); Urine Color Yellow (Yellow); Urine Glucose NEGATIVE (Negative); Urine Mucus Slight /HPF (None Seen); Urine Protein TRACE (Negative); Urine RBC 21-50 /HPF (None Seen); Urine Urobilinogen Normal (Normal)
[2023-04-11 16:33] LABS: Albumin 4.2 g/dL (3.4-5.0); Bilirubin Total 0.7 mg/dL (0.2-1.0); Potassium 3.5 mEq/L (3.5-5.1); Protein, Total 9.2 g/dL (6.4-8.2)
[2023-04-11] MEDS ORDERED: METOCLOPRAMIDE 10 MG/2mL INJ ONE (17:48)
--- NOTE | 2023-04-11 18:18 | ER ---
Nurse's Notes [facility] Name: Flor Smallwood Age: 42 yrs Sex: Female : 1980 Arrival Date: 04/11/2023 Time: 15:10 Bed 19 Private MD: Matteo Anderson E Diagnosis: Vomiting;Diarrhea, unspecified Presentation: 04/11 15:35 Chief complaint: Patient states: Woke up at 2am with vomiting and diarrhea. Unable to nj1 keep anything down. Coronavirus screen: Vaccine status: Patient reports receiving the 2nd dose of the covid vaccine. Ebola Screen: Patient denies travel to an Ebola-affected area in the 21 days before illness onset. Initial Sepsis Screen: Does the patient meet any 2 criteria? HR > 90 bpm. No. Patient's initial sepsis screen is negative. Does the patient have a suspected source of infection? No. Patient's initial sepsis screen is negative. Risk Assessment: Do you want to hurt yourself or someone else? Patient reports no desire to harm self or others. Onset of symptoms was April 11, 2023 at 02:00. 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 - Social history:: Smoking status: Patient denies any tobacco usage or history of. Screenin:39 [facility] ED Fall Risk Assessment (Adult) History of falling in the last 3 months, mb9 including since admission No falls in past 3 months (0 pts) Confusion or Disorientation No (0 pts) Intoxicated or Sedated No (0 pts) Impaired Gait No (0 pts) Mobility Assist Device Used No (0 pt) Altered Elimination No (0 pt) Score/Fall Risk Level 0 - 2 = Low Risk Oriented to surroundings, Maintained a safe environment, Educated pt \T\ family on fall prevention, incl call for assistance when getting out of bed. Abuse screen: Denies threats or abuse. Nutritional screening: No deficits noted. Tuberculosis screening: No symptoms or risk factors identified. Assessment: 15:49 General: Appears in no apparent distress. Behavior is calm, cooperative. Pain: Denies mb9 pain. Neuro: Luna Agitation-Sedation Scale (RASS): 0 - Alert and Calm Level of Consciousness is awake, alert, obeys commands, Oriented to person, place, time, situation, Appropriate for age. Cardiovascular: Patient's skin is warm and dry. Respiratory: Airway is patent Respiratory effort is even, unlabored, Respiratory pattern is regular, symmetrical, Breath sounds are clear bilaterally. GI: Abdomen is round non-distended, Bowel sounds present X 4 quads. Abd is soft and non tender X 4 quads. Reports diarrhea, nausea, vomiting, since last night. : Urine is clear. EENT: No signs and/or symptoms were reported regarding the EENT system. Derm: Skin is pink, warm \T\ dry. Musculoskeletal: Range of motion: intact in all extremities. 18:09 Reassessment: Patient and/or family updated on plan of care and expected duration. Pain mb9 level reassessed. Patient is alert, oriented x 3, equal unlabored respirations, skin warm/dry/pink. Patient states feeling better. Patient states symptoms have improved. Vital Signs: 15:35 BP 132 / 90; Pulse 99; Resp 18; Temp 99.9(O); Pulse Ox 95% ; Weight 72.57 kg; Height 4 nj1 ft. 11 in. ; Pain 9/10; 16:36 BP 112 / 92; Pulse 92; Resp 18; Pulse Ox 100% on R/A; mb9 18:09 BP 125 / 82; Pulse 84; Resp 16; Pulse Ox 100% on R/A; mb9 15:35 Body Mass Index 32.31 (72.57 kg, 149.86 cm) nj1 15:35 Pain Scale: Adult [facility] ED Course: 15:13 Patient arrived in ED. im 15:13 Matteo Anderson MD is Private Physician. im 15:14 Herman Arenas PA is PHCP. m 15:14 Mukul Salter MD is Attending Physician. jmm 15:38 Triage completed. nj1 15:39 Natividad Perez RN is Primary Nurse. mb9 15:39 Arm band placed on right wrist. nj1 15:40 Placed in gown. Bed in low position. Call light in reach. Side rails up X 1. Client mb9 placed on continuous cardiac and pulse oximetry monitoring. NIBP monitoring applied. 15:40 No provider procedures requiring assistance completed. mb9 15:50 Urinalysis w/ reflexes Sent. mb9 15:50 Test, Urine Sent. mb9 15:55 Inserted saline lock: 20 gauge in right antecubital area, using aseptic technique. aw1 15:55 Initial lab(s) drawn, by me, sent to lab. aw1 15:55 CBC with Diff Sent. mb9 15:55 CMP Sent. mb9 15:55 Lipase Sent. mb9 18:18 Matteo Anderson MD is Referral Physician. m 18:27 IV discontinued, intact, bleeding controlled, No redness/swelling at site. Pressure mb9 dressing applied. Administered Medications: 15:50 Drug: NS 0.9% IV 1000 ml Route: IV; Rate: 1 bolus; Site: right antecubital; mb9 18:15 Follow up: Response: No adverse reaction; IV Status: Completed infusion mb9 15:52 Drug: Ondansetron IVP 4 mg Route: IVP; Site: right antecubital; mb9 18:15 Follow up: Response: No adverse reaction mb9 15:55 Drug: Famotidine IVP 20 mg Route: IVP; Site: right antecubital; mb9 18:15 Follow up: Response: No adverse reaction mb9 17:45 Drug: metoCLOPramide IVP 20 mg Route: IVP; Site: right antecubital; bp 18:15 Follow up: Response: No adverse reaction mb9 Medication: 15:39 VIS not applicable for this client. mb9 Outcome: 18:18 Discharge ordered by . [facility] 18:27 Discharged to home ambulatory. mb9 18:27 Condition: stable 18:27 Discharge instructions given to patient, Instructed on discharge instructions, follow up and referral plans. Demonstrated understanding of instructions, follow-up care, medications, Prescriptions given X 2. 18:27 Patient left the ED. mb9 Signatures: Herman Arenas PA PA jmm Peltier, Brian, RN RN Natividad Barnett RN RN mb9 Karyna Mckeon RN RN nj1 Nava Sotelo Alyssa aw1 Corrections: (The following items were deleted from the chart) 15:39 15:35 Pulse 99bpm; Resp 18bpm; Pulse Ox 95%; Temp 99.9F Oral; 72.57 kg; Height 4 ft. 11 nj1 in.; BMI: 32.3; Pain 06/23, Adult; nj1
--- NOTE | 2023-04-11 18:18 | EDPHYS ---
Physician Documentation [facility] Name: Flor Smallwood Age: 42 yrs Sex: Female : 1980 Arrival Date: 04/11/2023 Time: 15:10 Bed 19 Private MD: Matteo Anderson E ED Physician Mukul Salter HPI: 04/11 15:37 This 42 yrs old Female presents to ER via Ambulatory with complaints of jmm Nausea/Vomiting/Diarrhea. 15:37 The patient presents to the emergency department with nausea, vomiting, diarrhea. jmm Onset: The symptoms/episode began/occurred acutely, yesterday. Possible causes: unknown. The symptoms are aggravated by nothing. food , The symptoms are alleviated by nothing. Associated signs and symptoms: Pertinent positives: fever. The patient has not experienced similar symptoms in the past. 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 - Social history:: Smoking status: Patient denies any tobacco usage or history of. ROS: 15:37 Cardiovascular: Negative for chest pain, palpitations, and edema, Respiratory: Negative jmm for shortness of breath, cough, wheezing, and pleuritic chest pain. 15:37 Constitutional: Positive for body aches, chills, fever. 15:37 Abdomen/GI: Positive for nausea and vomiting, diarrhea. 15:37 All other systems are negative. Exam: 15:37 Constitutional: This is a well developed, well nourished patient who is awake, alert, jmm and in no acute distress. Head/Face: atraumatic. Eyes: EOMI, no conjunctival erythema appreciated ENT: Moist Mucus Membranes Neck: Trachea midline, Supple Chest/axilla: Normal chest wall appearance and motion. Cardiovascular: Regular rate and rhythm. No edema appreciated Respiratory: Normal respirations, no respiratory distress appreciated 15:37 Back: Normal ROM Skin: General appearance color normal MS/ Extremity: Moves all extremities, no obvious deformities appreciated, no edema noted to the lower extremities Neuro: Awake and alert Psych: Behavior is normal, Mood is normal, Patient is cooperative and pleasant 15:37 Abdomen/GI: Inspection: abdomen appears normal, Bowel sounds: normal, Palpation: abdomen is soft and non-tender, in all quadrants. Vital Signs: 15:35 BP 132 / 90; Pulse 99; Resp 18; Temp 99.9(O); Pulse Ox 95% ; Weight 72.57 kg; Height 4 mn1 ft. 11 in. ; Pain 9/10; 16:36 BP 112 / 92; Pulse 92; Resp 18; Pulse Ox 100% on R/A; mb9 18:09 BP 125 / 82; Pulse 84; Resp 16; Pulse Ox 100% on R/A; mb9 15:35 Body Mass Index 32.31 (72.57 kg, 149.86 cm) [facility] 15:35 Pain Scale: Adult [facility] MDM: 15:37 Patient medically screened. [facility] 18:17 Differential diagnosis: Nonspecific abd pain, gastritis, viral gastroenteritis, jmm gastroenteritis. Data reviewed: vital signs, nurses notes, lab test result(s). I considered the following discharge prescriptions or medication management in the emergency department Medications were administered in the Emergency Department. See MAR. Counseling: I had a detailed discussion with the patient and/or guardian regarding: the historical points, exam findings, and any diagnostic results supporting the discharge/admit diagnosis, lab results, the need for outpatient follow up, to return to the emergency department if symptoms worsen or persist or if there are any questions or concerns that arise at home. ED course: Patient states feeling much better. I do not current suspect acute appendicitis, acute cholecystitis. Patient has both vomiting and diarrhea. This most likely represents a viral gastroenteritis. Patient has no pain on palpation of the abdomen. Patient otherwise given strict return precautions. Patient understood and agrees to plan of care.. 04/11 15:40 Order name: CBC with Diff [facility] 04/11 15:40 Order name: CMP; Complete Time: 16:36 [facility] 04/11 15:40 Order name: Lipase; Complete Time: 16:36 [facility] 04/11 15:40 Order name: Test, Urine; Complete Time: 16:17 [facility] 04/11 15:40 Order name: Urinalysis w/ reflexes; Complete Time: 16:17 [facility] 04/11 15:40 Order name: IV Saline Lock; Complete Time: 15:50 [facility] 04/11 15:40 Order name: Labs collected and sent; Complete Time: 15:50 [facility] 04/11 17:35 Order name: PO challenge; Complete Time: 18:08 [facility] Administered Medications: 15:50 Drug: NS 0.9% IV 1000 ml Route: IV; Rate: 1 bolus; Site: right antecubital; mb9 18:15 Follow up: Response: No adverse reaction; IV Status: Completed infusion mb9 15:52 Drug: Ondansetron IVP 4 mg Route: IVP; Site: right antecubital; mb9 18:15 Follow up: Response: No adverse reaction mb9 15:55 Drug: Famotidine IVP 20 mg Route: IVP; Site: right antecubital; mb9 18:15 Follow up: Response: No adverse reaction mb9 17:45 Drug: metoCLOPramide IVP 20 mg Route: IVP; Site: right antecubital; bp 18:15 Follow up: Response: No adverse reaction mb9 Disposition Summary: 04/11/23 18:18 Discharge Ordered Location: Home [facility] Condition: Stable [facility] Diagnosis - Vomiting jmm - Diarrhea, unspecified jmm Followup: [facility] - With: Matteo Anderson MD - When: 2 - 3 days - Reason: Recheck today's complaints, Continuance of care, Re-evaluation by your physician Discharge Instructions: - Discharge Summary Sheet [facility] - Food Choices to Help Relieve Diarrhea, Adult jmm - Diarrhea, Adult jmm - Clear Liquid Diet, Adult jmm - Vomiting, Adult jmm Forms: - Medication Reconciliation Form [facility] - Thank You Letter [facility] - Antibiotic Education [facility] - Prescription Opioid Use [facility] - [email or web address] [facility] Prescriptions: - ondansetron 4 mg Oral Tablet,disintegrating - take 1 tablet by ORAL route every 4 to 6 hours As needed as needed for nausea jmm and vomiting; 20 tablet; Refills: 0, Product Selection Permitted - promethazine 6.25 mg/5 mL Oral Syrup - take 20 milliliters by ORAL route every 6 hours As needed; 300 milliliter; m Refills: 0, Product Selection Permitted Addendum: 04/13/2023 10:53 I reviewed the patient's care provided by the Advanced Practice Provider and agree with j r11 the diagnosis and treatment plan. Signatures: Dispatcher [facility] EDHerman Jose PA PA jmm Peltier, Jovanny, RN RN bp Mukul Salter MD MD [id number] Natividad Perez RN RN mb9 Karyna Mckeon RN RN nj1
[2023-04-11 18:58] VITALS: TEMP 99.9
[2023-04-11 18:59] VITALS: O2SAT 100
[2023-04-11 19:00] VITALS: BP 125/82
[2023-04-11 19:19] LABS: Blood Morphology Comment NOT SEEN (NOT SEEN); Platelet Estimate ADEQ; White Blood Cell Scan OK (OK)
== END 2023-04-11 18:27 | disposition home or self-care (01) ==
LOC: ER 15:10
DX: R11.2 Nausea with vomiting, unspecified (principal); R19.7 Diarrhea, unspecified; Z88.6 Allergy status to analgesic agent
CPT/HCPCS: 96361; 85025; 81001; 36415; 81025; 83690; 80053; 96375; 96374; 99284; J2765; J2405; J7030

== ENCOUNTER 2024-04-22 16:40 | Emergency (ER) | payer OTHER ==
[2024-04-22 19:03] LABS: SARS-CoV-2 Antigen CONTROL BLUE LINE VIS/BG OK
[2024-04-22 19:04] LABS: SARS-CoV-2 Antigen Rapid Res Positive (Negative)
--- NOTE | 2024-04-22 19:33 | ER ---
Nurse's Notes [facility] Name: Flor Smallwood Age: 43 yrs Sex: Female : 1980 Arrival Date: 04/22/2024 Time: 16:40 Bed DX3 Private MD: Diagnosis: SARS-associated coronavirus as the cause of diseases classified elsewhere Presentation: 04/22 18:08 Chief complaint: Patient states: Pt c/o scratchy throat, runny nose, SMITH, and fever tl4 since yesterday afternoon. Coronavirus screen: chills, congestion, fatigue, fever, headache, runny nose, sore throat. Ebola Screen: No symptoms or risks identified at this time. Initial Sepsis Screen: Does the patient meet any 2 criteria? No. Patient's initial sepsis screen is negative. Does the patient have a suspected source of infection? No. Patient's initial sepsis screen is negative. Risk Assessment: Do you want to hurt yourself or someone else? Patient reports no desire to harm self or others. Onset of symptoms was April 21, 2024. 18:08 Method Of Arrival: Ambulatory tl4 18:08 Acuity: VAN 4 tl4 Triage Assessment: 18:12 General: Appears in no apparent distress. Behavior is calm, cooperative. Pain: tl4 Complains of pain in scalp and neck. EENT: Reports nasal congestion pain when swallowing. Neuro: Level of Consciousness is awake, alert, obeys commands, Oriented to person, place, time, situation, Moves all extremities. Full function Gait is steady. Cardiovascular: Capillary refill < 3 seconds Patient's skin is warm and dry. Respiratory: Airway is patent Respiratory effort is even, unlabored, Respiratory pattern is regular, symmetrical. GI: No signs and/or symptoms were reported involving the gastrointestinal system. : No signs and/or symptoms were reported regarding the genitourinary system. Derm: No signs and/or symptoms reported regarding the dermatologic system. Musculoskeletal: No signs and/or symptoms reported regarding the musculoskeletal system. Historical: - Allergies: 18:11 Tylenol; tl4 - Immunization history:: Adult Immunizations unknown. - Infectious Disease History:: Denies. - Social history:: Smoking status: Patient denies any tobacco usage or history of. Screenin:27 [facility] ED Fall Risk Assessment (Adult) History of falling in the last 3 months, mb9 including since admission No falls in past 3 months (0 pts) Confusion or Disorientation No (0 pts) Intoxicated or Sedated No (0 pts) Impaired Gait No (0 pts) Mobility Assist Device Used No (0 pt) Altered Elimination No (0 pt) Score/Fall Risk Level 0 - 2 = Low Risk Oriented to surroundings, Maintained a safe environment, Educated pt \T\ family on fall prevention, incl call for assistance when getting out of bed. Abuse screen: Denies threats or abuse. Nutritional screening: No deficits noted. Tuberculosis screening: No symptoms or risk factors identified. Assessment: 18:29 General: Appears in no apparent distress. Behavior is calm. Pain: Complains of pain in mb9 throat Quality of pain is described as throbbing. Neuro: Level of Consciousness is awake, alert, obeys commands, Oriented to person, place, time, situation, Appropriate for age Reports headache. Cardiovascular: Patient's skin is warm and dry. Respiratory: Airway is patent Respiratory effort is even, unlabored, Respiratory pattern is regular, symmetrical. GI: No signs and/or symptoms were reported involving the gastrointestinal system. : No signs and/or symptoms were reported regarding the genitourinary system. EENT: Throat is reddened. Derm: Skin is pink, warm \T\ dry. Musculoskeletal: Range of motion: intact in all extremities. Vital Signs: 18:08 BP 140 / 81; Pulse 104; Resp 16; Temp 100(O); Pulse Ox 98% on R/A; Weight 72.57 kg; tl4 Height 4 ft. 11 in. ; Pain 8/10; 19:51 BP 138 / 78; Pulse 99; Resp 17; Temp 99; Pulse Ox 99% ; vc1 18:08 Body Mass Index 32.32 (72.57 kg, 149.86 cm) tl4 18:08 Pain Scale: Adult tl4 ED Course: 16:44 Patient arrived in ED. mg5 17:05 Niles Serra NP is PHCP. pm1 17:05 Tex Feng MD is Attending Physician. pm1 18:11 Triage completed. tl4 18:13 Arm band placed on left wrist. tl4 18:27 Natividad Galloway RN is Primary Nurse. mb9 18:28 Bed in low position. Call light in reach. Side rails up X 1. Provided Education on: bridget press call light if needing anything. 18:28 Patient placed in a hallway bed, in a wheelchair. 1 18:28 No provider procedures requiring assistance completed. Patient did not have IV access mbPiyush during this emergency room visit. 18:33 Flu Sent. bc6 18:33 SARS RAPID Sent. 6 18:33 Strep Sent. 6 18:33 COVID swab sent to lab. Flu and/or RSV swab sent to lab. Strep swab sent to lab. [facility] 19:18 Report given to CLYDE RAMIREZ. bridget Administered Medications: No medications were administered Medication: 18:28 VIS not applicable for this client. mb9 Outcome: 19:32 Discharge ordered by MD. pm1 19:51 Discharged to home ambulatory, 1 19:51 Condition: good 19:51 Discharge instructions given to patient, Instructed on discharge instructions, follow up and referral plans. Demonstrated understanding of instructions, follow-up care, 19:52 Patient left the ED. vc1 Signatures: Niles Serra, SETTLEMENT TECHNICIAN SETTLEMENT TECHNICIAN pm1 Leida Sahni RN RN ll1 Tash Neumann RN RN vc1 Natividad Galloway RN RN mb9 Swati Rodriguez 6 Heather Brown mg5 Bony Hernandez RN RN tl4
--- NOTE | 2024-04-22 19:33 | EDPHYS ---
Physician Documentation [facility] Name: Flor Smallwood Age: 43 yrs Sex: Female : 1980 Arrival Date: 04/22/2024 Time: 16:40 Bed DX3 Private MD: ED Physician Tex Feng HPI: 04/22 19:30 This 43 yrs old Female presents to ER via Ambulatory with complaints of Flu pm1 Symptoms. 19:30 The patient or guardian reports cough, with no sputum. Onset: The symptoms/episode pm1 began/occurred yesterday. Severity of symptoms: in the emergency department the symptoms are unchanged. Modifying factors: The symptoms are alleviated by OTC cold preparation. Associated signs and symptoms: Pertinent positives: fever, rhinorrhea, sore throat. The patient has not recently seen a physician. Historical: - Allergies: 18:11 Tylenol; tl4 - Immunization history:: Adult Immunizations unknown. - Infectious Disease History:: Denies. - Social history:: Smoking status: Patient denies any tobacco usage or history of. ROS: 19:30 Cardiovascular: Negative for chest pain, palpitations, and edema, pm1 19:30 Abdomen/GI: Negative for abdominal pain, nausea, vomiting, diarrhea, and constipation, Back: Negative for injury and pain, MS/Extremity: Negative for injury and deformity, Skin: Negative for injury, rash, and discoloration, 19:30 Constitutional: Positive for fever, Negative for poor PO intake, 19:30 Respiratory: Positive for cough, Negative for shortness of breath, 19:30 Neuro: Positive for headache, 19:30 All other systems are negative, Exam: 19:30 Constitutional: This is a well developed, well nourished patient who is awake, alert, pm1 and in no acute distress. Head/Face: Normocephalic, atraumatic. 19:30 Skin: Warm, dry with normal turgor. Normal color with no rashes, no lesions, and no evidence of cellulitis. MS/ Extremity: Pulses equal, no cyanosis. Neurovascular intact. Full, normal range of motion. 19:30 ENT: Posterior pharynx: Tonsils: bilaterally enlarged, with erythema, no exudate, no ulcerations, erythema, that is mild, exudate, is not appreciated, peritonsillar mass, is not appreciated, 19:30 Cardiovascular: Exam negative for acute changes, Rate: normal, Rhythm: regular, Pulses: no pulse deficits are appreciated, Heart sounds: normal, 19:30 Respiratory: Exam negative for acute changes, respiratory distress, shortness of breath, Breath sounds: are clear throughout, 19:30 Neuro: Exam negative for acute changes, Orientation: is normal, Mentation: is normal, Motor: is normal, moves all fours, Vital Signs: 18:08 BP 140 / 81; Pulse 104; Resp 16; Temp 100(O); Pulse Ox 98% on R/A; Weight 72.57 kg; tl4 Height 4 ft. 11 in. ; Pain 8/10; 19:51 BP 138 / 78; Pulse 99; Resp 17; Temp 99; Pulse Ox 99% ; vc1 18:08 Body Mass Index 32.32 (72.57 kg, 149.86 cm) tl4 18:08 Pain Scale: Adult tl4 MDM: 17:34 Patient medically screened. pm1 19:30 Differential diagnosis: URI, covid, influenza, strep. Data reviewed: vital signs. pm1 19:30 Counseling: I had a detailed discussion with the patient and/or guardian regarding the pm1 historical points, exam findings, and any diagnostic results supporting the discharge/admit diagnosis, lab results, the need for outpatient follow up, to return to the emergency department if symptoms worsen or persist or if there are any questions or concerns that arise at home. 04/22 17:35 Order name: Strep pm1 04/22 17:35 Order name: SARS RAPID; Complete Time: 19:30 pm1 04/22 17:35 Order name: Flu; Complete Time: 19:30 pm1 04/22 19:14 Order name: Throat Culture EDMS Administered Medications: No medications were administered Disposition Summary: 04/22/24 19:32 Discharge Ordered Notes: Location: Home pm1 Problem: new pm1 Symptoms: have improved pm1 Condition: Stable pm1 Diagnosis - SARS-associated coronavirus as the cause of diseases classified elsewhere pm1 Followup: pm1 - With: Emergency Department - When: As needed - Reason: Worsening of condition Followup: pm1 - With: Private Physician - When: 2 - 3 days - Reason: Recheck today's complaints, Continuance of care, Re-evaluation by your physician Discharge Instructions: - Discharge Summary Sheet pm1 - COVID-19 pm1 - 10 Things You Can Do to Manage Your COVID-19 Symptoms at Home - [facility] (04/28/2021) pm1 Forms: - Medication Reconciliation Form pm1 - Antibiotic Education pm1 - Prescription Opioid Use pm1 - Patient Portal Instructions pm1 - Leadership Thank You Letter pm1 - Work release form vc1 - Family Work Release vc1 Signatures: Dispatcher [employer] EDMS Niles Serra RESEARCH LIBRARIAN RESEARCH LIBRARIAN pm1 Bony Hernandez RN RN tl4 Corrections: (The following items were deleted from the chart) 17:36 17:36 Group A Streptococcus Rapid Sc+BA.LAB.BRZ ordered. EDMS EDMS 17:36 17:36 SARS-COV-2 Antigen Rapid+I.LAB.BRZ ordered. EDMS EDMS 17:36 17:36 Influenza Screen (A \T\ B)+BA.LAB.BRZ ordered. EDMS EDMS
[2024-04-23 00:53] VITALS: BP 138/78; TEMP 99; O2SAT 99
== END 2024-04-22 19:52 | disposition home or self-care (01) ==
LOC: ER 16:40
DX: U07.1 COVID-19 (principal)
CPT/HCPCS: 36415; 87070; 87081; 87804; 87811; 99283